=== PATIENT | female | born 1935 | race Caucasian/White ===

== ENCOUNTER → 2024-07-24 09:35 | Outpatient (REF) | payer MEDICARE, OTHER, SELFPAY ==
[2024-07-24 12:21] LABS: ALT (SGPT) 18 U/L (0-35); AST (SGOT) 20 U/L (14-36); Albumin 4.1 g/dl (3.5-5.0); Alkaline Phosphatase 64 U/L (38-126); Blood Urea Nitrogen 20 mg/dl (7-17); Calcium 9.4 mg/dl (8.4-10.2); Carbon Dioxide 27 mmol/L (22-30); Chloride 103 mmol/L (98-107); Glucose 131 mg/dl (70-99); HDL Cholesterol 48 mg/dl; LDL Cholesterol, Calculated 109 mg/dl; Potassium 4.2 mmol/L (3.5-5.1); Sodium 141 mmol/L (135-145); Total Bilirubin 0.8 mg/dl (0.2-1.3); Total Cholesterol 177 mg/dl (50-199); Total Protein 6.6 g/dl (6.3-8.2); Triglyceride 103 mg/dl (10-149); Very Low Density Lipoprotein 20 mg/dl (0-30); eGFR 48.03
[2024-07-24 12:37] LABS: Vitamin D, 25-OH*** 42.9 ng/mL (30-80)
[2024-07-24 12:51] LABS: TSH Reflex To Free T4 2.44 uIU/ml (0.47-4.68)
[2024-07-24 13:11] LABS: % Basophils 0.6 % (0-2); % Eosinophils 3.1 % (0-6); % Immature Granulocytes 0.6 % (0-0.5); % Lymphocytes 11.8 % (20.5-51.1); % Monocytes 7.7 % (1.7-9.3); % Neutrophils 76.2 % (42.2-75.2); Absolute Eosinophils 0.1 10^3/uL (0-0.7); Absolute Lymphocytes 0.4 10^3/uL (1.2-3.4); Absolute Monocytes 0.3 10^3/uL (0.1-0.6); Absolute Neutrophils 2.5 10^3/uL (1.4-6.5); Hematocrit 35.6 % (37.0-47.0); Hemoglobin 12.2 g/dL (12.0-16.0); Mean Corp Hgb Conc. 34.3 g/dL (33.0-37.0); Mean Corpuscular Hgb 29.6 pg (27.0-31.0); Mean Corpuscular Volume 86.4 fL (81.0-99.0); Mean Platelet Volume 9.3 fL (7.4-10.4); Nucleated Red Blood Cells % 0 %; Platelet Count 191 10^3/uL (130-400); Red Blood Cell Count 4.12 10^6/uL (4.20-5.40); Red Cell Dist. Width 12.7 % (11.5-14.5); White Blood Cell Count 3.2 10^3/uL (4.8-10.8)
== END ==
LOC: HWLAB 09:35
PROVIDERS: ATTENDING PHYSICIAN Internal Medicine
DX: R73.02 Impaired glucose tolerance (oral) (principal); I10 Essential (primary) hypertension; M81.0 Age-related osteoporosis without current pathological fracture; Z00.00 Encounter for general adult medical examination without abnormal findings; D72.819 Decreased white blood cell count, unspecified; R53.83 Other fatigue; Z79.899 Other long term (current) drug therapy
CPT/HCPCS: 36415; 80053; 80061; 82306; 84443; 85025